=== PATIENT | male | born 1955 | race African-American/Black ===

== ENCOUNTER 2019-11-06 10:11 | Outpatient (CLI) | payer BC ==
--- NOTE | 2019-11-06 10:56 | RAD ---
TWO VIEWS OF THE CHEST: DATE: 11/06/2019. COMPARISON: 10/31/2014. HISTORY: Heart palpitations. FINDINGS: There is mild increased linear interstitial density, stable when compared to the prior exam. No pneu mothorax, pleural fluid, focal consolidation, or alveolar edema. Stable pectus excavatum deformity n oted. IMPRESSION: No acute findings. POS: [facility]
== END 2019-11-06 10:12 | disposition home or self-care (01) ==
LOC: BICRAD 10:11
PROVIDERS: ATTEND Family Medicine
DX: R05 Cough (principal)
CPT/HCPCS: 71046

== ENCOUNTER 2023-03-27 13:13 | Outpatient (CLI) | payer BC | END 2023-03-27 13:14 | disposition home or self-care (01) | LOC: ULT 13:13 → BICCT 13:14 | PROVIDERS: ATTEND Internal Medicine | DX: Z12.2 Encounter for screening for malignant neoplasm of respiratory organs (principal); E06.3 Autoimmune thyroiditis; F17.210 Nicotine dependence, cigarettes, uncomplicated; J43.9 Emphysema, unspecified; J98.4 Other disorders of lung; J94.8 Other specified pleural conditions; R91.1 Solitary pulmonary nodule; R94.6 Abnormal results of thyroid function studies | CPT/HCPCS: 71271; 76536 ==